=== PATIENT | male | born 1995 | race Caucasian/White ===

== ENCOUNTER 2018-11-11 22:13 | Emergency (ER) | payer OTHER ==
[~2018-11-11] VITALS: Ht 167.6 cm; Wt 108.4 kg
[2018-11-12] MEDS ORDERED: LEVSIN/SL0.125 MG SL (07:22)
[2018-11-12] MEDS ORDERED: PEPCID40 MG PO (07:22)
[2018-11-12] MEDS ORDERED: PROTONIX40 MG PO (07:22)
== END 2018-11-12 07:30 ==
LOC: ER 22:13
DX: R10.13 Epigastric pain (principal)

== ENCOUNTER 2019-01-18 09:07 | Emergency (ER) | payer OTHER ==
[~2019-01-18] VITALS: Ht 170.2 cm; Wt 101.2 kg
[~2019-01-18 09:07] MED LIST: LEVSIN/SL0.125 MG SL; PEPCID40 MG PO; PROTONIX40 MG PO
== END 2019-01-18 15:46 | disposition home or self-care (01) ==
LOC: ER 09:07 → CPU-OBS 09:09 → ER 15:46
DX: R07.89 Other chest pain (principal)
CPT/HCPCS: G0378; G0379; 93005; 93306

== ENCOUNTER 2019-01-23 08:31 | Outpatient (CLI) | payer OTHER | END 2019-01-23 08:33 | disposition home or self-care (01) | LOC: TOM 08:31 | DX: R10.13 Epigastric pain (principal); R74.8 Abnormal levels of other serum enzymes ==

== ENCOUNTER 2019-06-21 06:23 | Outpatient (CLI) | payer OTHER | END 2019-06-21 06:30 | disposition home or self-care (01) | LOC: LAB 06:23 | DX: M25.561 Pain in right knee (principal); M53.1 Cervicobrachial syndrome; Z13.89 Encounter for screening for other disorder; Z13.220 Encounter for screening for lipoid disorders; Z11.3 Encounter for screening for infections with a predominantly sexual mode of transmission; M79.641 Pain in right hand ==

== ENCOUNTER 2019-06-21 07:36 | Outpatient (CLI) | payer OTHER | END 2019-06-21 17:00 | disposition home or self-care (01) | LOC: MRI 07:36 | DX: M25.561 Pain in right knee (principal); R53.1 Weakness; M79.641 Pain in right hand; Z13.89 Encounter for screening for other disorder; Z13.220 Encounter for screening for lipoid disorders; Z11.3 Encounter for screening for infections with a predominantly sexual mode of transmission | CPT/HCPCS: 73721 ==